=== PATIENT | female | born 1975 | race Caucasian/White ===

== ENCOUNTER 2020-10-07 14:40 | Outpatient (REF) | payer OTHER, SELFPAY | END 2020-10-07 14:41 | disposition home or self-care (01) | LOC: HO.LAB 14:40 | PROVIDERS: Visit Provider Nurse Practitioner Family | DX: Z20.822 Contact with and (suspected) exposure to COVID-19 (principal) | CPT/HCPCS: U0003; U0005 ==

== ENCOUNTER 2020-10-08 10:10 | Outpatient (REF) | payer OTHER, SELFPAY ==
--- NOTE | ~2020-10-08 | XR_ITS ---
EXAMINATION: XR CHEST CLINICAL INFORMATION: Cough COMPARISON: None TECHNIQUE: 2 views of the chest were obtained. FINDINGS: Lungs are clear. There is no airspace consolidation or groundglass opacity or effusion. The costophrenic sulci are well-defined. The heart is normal in size. The hilar and mediastinal contours and bony structures are unremarkable. XR/XR chest 2V IMPRESSION: Lungs clear.
== END 2020-10-08 10:11 | disposition home or self-care (01) ==
LOC: HO.HMGCX 10:10
PROVIDERS: Visit Provider Nurse Practitioner Family
DX: Z13.89 Encounter for screening for other disorder (principal)
CPT/HCPCS: 71046

== ENCOUNTER → 2024-07-19 10:26 | Outpatient (BNVA) | payer OTHER, SELFPAY | PROVIDERS: PCP Internal Medicine; Visit Provider Physician Assistant Surgical ==

== ENCOUNTER 2024-07-31 08:11 | Outpatient (AMB) | payer OTHER, SELFPAY ==
--- OUTSIDE RECORDS SUMMARY | 2024-07-31 08:15 | XMS_ITS | Clinical Summary ---
Author Organization [facility] Address [address] [place] [address] Phone Care Team Providers Care Environmental Planner Name Role Phone Mary Galvan MD Primary Care Provider [phone] Allergies No known active allergies Medications buPROPion SR (WELLBUTRIN SR) 150 mg 12 hr tablet Take 1 tablet (150 mg total) by mouth 2 (two) times a day. 02/02/20 23 Active budesonide-form oteroL (SYMBICORT) 160-4.5 mcg/actuation inhaler Inhale 2 puffs by mouth 2 (two) times a day. 03/22/19 24 Active pantoprazole (PROTONIX) 40 mg EC tablet Take 1 tablet (40 mg total) by mouth 1 (one) time each day before breakfast. On empty stomach 02/02/20 23 Active amphetamine-dex troamphetamine (ADDERALL) 10 mg tablet Take 1 Tablet by mouth 2 Times Daily. 11/04/19 24 Active sertraline (ZOLOFT) 100 mg tablet Take 1 tablet (100 mg total) by mouth at bedtime. 04/18/19 25 Active Adderall XR 20 mg 24 hr capsule Take 1 capsule (20 mg total) by mouth 1 (one) time each day in the morning. 05/29/19 25 Active albuterol HFA (Ventolin HFA) 90 mcg/actuation inhalerIndicati ons:Moderate persistent asthma, unspecified whether complicated Inhale 2 puffs by mouth every 6 (six) hours if needed for wheezing. 1 each 2 07/26/19 25 025 Active Ventolin HFA 90 mcg/actuation inhaler INHALE 2 PUFFS INTO LUNGS EVERY 6 HOURS NEEDED FOR COUGH, WHEEZE, SHORTNESS OF BREATH 04/21/19 25 025 Discontinued Active Problems Problem Noted Date Diagnosed Date Iron deficiency anemia 06/30/2024 Hyperlipidemia 06/30/2024 Depression with anxiety 05/09/2023 Overview (05/06/2024): HSV-2 seropositive 05/09/2023 Overview (05/06/2024): historical info, never had lesions History of bucket handle tear of medial meniscus 05/09/2023 Stage 2 moderate COPD by GOL D classification ([facility] V24, [facility] V28) 02/01/2023 Overview (05/06/2024): Spondylolisthesis, lumbar region 05/23/2020 Lumbar disc herniation 05/23/2020 Thrombocytosis 07/06/2019 Overview (05/06/2024): ADHD 04/03/2019 Left breast lump 07/20/2018 Severe obesity (BMI 35.0-39. 9) with comorbidity ([facility] V24, [facility] V28) 06/23/2018 Spinal stenosis 01/26/2017 Esophageal reflux Resolved Problems Problem Noted Date Diagnosed Date Resolved Date Chronic cough 02/01/2023 06/19/2024 Overview (05/06/2024): Encounters Date Type Department Care Team Description 07/10/2024 1:45 PM EDT Office Visit Obstetrics and Gynecology - [address] [phone] Michaelle Diaz CNM Hot flashes (Primary Dx); Anxiety and depression; Smokes tobacco daily 06/30/2024 Telephone Adult Medicine [facility] - [address] [phone] Kendal Perea PA VIDEO VISIT 06/27/2024 8:50 AM EDT - 06/27/2024 11:59 PM EDT Hospital Encounter Radiology Department - [address] [phone] Screening mammogram, encounter for Discharge Disposition: Home or Self Care 06/22/2024 10:25 AM EDT - 06/22/2024 11:59 PM EDT Hospital Encounter [address] [phone] Unilateral primary osteoarthritis, right knee Discharge Disposition: Home or Self Care 06/19/2024 10:15 AM EDT Office Visit [address] [phone] Kendal Perea PA Spinal stenosis, unspecified spinal region (Primary Dx); Need for vaccination against Streptococcus pneumoniae; Low hemoglobin and low hematocrit; Lipid screening; Stage 2 moderate COPD by GOLD classification (CMS/HCC V24, CMS/HCC V28); Elevated random blood glucose level; Colon cancer screening; Severe obesity (BMI 35.0-39.9) with comorbidity (CMS/HCC V24, [facility] V28); Chronic joint pain 06/14/2024 Telephone Adult Medicine [address] [phone] Mary Galvan MD Labs Only from Last 3 Months Immunizations Name Administration Dates Next Due Influenza Quadravalent, MDCK , 0.5ml, preservative free (Flucelvax) 6mo and older 01/03/2019 Influenza, Unspecified 12/05/2017,12/08/2016 Moderna SARS-CoV-2 COVID-19, mRNA, LNP-S, preservative free 06/30/2020,05/31/2020 Pneumococcal conjugate 20 va lent (Prevnar 20, PCV 20) 2mo and older 06/19/2024 Tdap Tetanus diptheria acell ular pertussis (Boostrix; Adacel) 7yo and older 12/16/2014 Surgical History Surgery Date Site/Laterality Comments SECTION 1994 TUBAL LIGATION 2009 BACK SURGERY 02/08/2018 L4-L5 repair UPPER GASTROINTESTINAL ENDOSCOPY 01/16/2020 neil esophagitis Medical History Medical History Date Comments Depression with anxiety HSV-2 seropositive historical in fo, never had lesions History of bucket handle tea r of medial meniscus 11/27/201405/16, left Spinal stenosis 01/26/2017 Esophageal reflux Family History Medical History Relation Name Comments Bipolar disorder Daughter Other: unknown Father COPD Maternal Grandmother Other: murdered Mother Relation Name Status Comments Daughter Father Alive Maternal Grandfather Maternal Grandmother Mother Paternal Grandfather Paternal Grandmother Social History Tobacco Use Types Packs/Day Years Used Date Smoking Tobacco: Every Day Smokeless Tobacco: Never Tobacco Cessation:Ready to Q uit: Not Asked; Counseling Given: Not Answered Alcohol Use Standard Drinks/Week Comments No 0 (1 standard drink = 0.6 oz pur e alcohol) Housing Instability Answer Date Recorde d Are you worried that in the next 2 months you may not have stable housing? No 06/28/2024 Food Access & Nutrition Answer Date Rec orded Do you have access to a vari ety of food including fruits and vegetables? No 06/28/2024 Access to Healthcare Answer Date Record ed Within the last 3 months, ho w many times did you visit the emergency department for your medical care? 0 06/28/2024 Health Literacy Answer Date Recorded How often do you need to hav e someone help you when you read instructions, pamphlets, or other written material from your doctor or pharmacy? Never 06/28/2024 Caregiver: How often do you need to have someone help you when you read instructions, pamphlets, or other written material from your doctor or pharmacy? Not on file 06/28/2024 Financial Risk Answer Date Recorded How hard is it for you to pa y for the very basics like food, housing, medical care, and air conditioning / heating? Hard 06/28/2024 Transportation Answer Date Recorded Has the lack of transportati on kept you from meetings, work, or from getting things needed for daily living? No Has the lack of transportati on kept you from medical appointments or from getting medications? No 06/28/2024 Social Isolation Answer Date Recorded How often do you feel lonely or isolated from th ose around you? Never 06/28/2024 Food Risk Answer Date Recorded Within the past 12 months we worried whether our food would run out before we got money to buy more. Unable to respond 025 Within the past 12 months th e food we bought just didn't last and we didn't have money to get more. Unable to respond 06/06 Dependent Care Answer Date Recorded Do you need help finding or paying for care for your loved ones. For example, child development director or elderly care for an older adult? No 06/28/2024 Education Answer Date Recorded Do you think completing more education or training, like finishing a GED, going to college, or learning a trade, would be helpful for you? No 06/28/2024 Employment and Income Answer Date Recor ded During the last four weeks, have you been actively looking for work? No 06/28/2024 Living Situation Answer Date Recorded What is your living situation? 0 06/28/2024 Comments No Sex and Gender Information Value Date Recorded Sex Assigned at Not on file Legal Sex Female 4:20 AM EST Gender Identity Not on file Sexual Orientation Not on file Obstetrics History Para Term AB IAB SAB Ectopic Multiple Livin g Live Births 4 4 4 4 4 Date Outcome GA Total Labor Labor/2nd/3rd Weight Sex Type Anes PTL Nessa A1 A5 Name Clin Term CS-Un spec Living Term Living Term Living Term Living Last Filed Vital Signs Vital Sign Reading Time Taken Comments Blood Pressure 132/84 07/10/2024 1:46 PM EDT Pulse 72 07/10/2024 1:46 PM EDT Temperature 35.9 ??C (96.7 ??F) 06/19/2024 1 0:29 AM EDT Respiratory Rate 14 06/19/2024 10:2 9 AM EDT Oxygen Saturation 98% 12/23/2022 10: 28 AM EDT @ rest on R.A. Inhaled Oxygen Concentration - - Weight 82.6 kg (182 lb) 07/10/2024 1:46 PM EDT Height 149.9 cm (4' 11 ) 11/11/2023 9:1 2 AM EDT Body Mass Index 36.76 11/11/2023 9:12 AM EDT Plan of Treatment Upcoming Encounters Date Type Department Care Team ([facility] st Contact Info) Description 08/07/2024 11:00 AM EDT Office Visit Pulmonolgy - [address] [place] [address] [phone] Monie Tobias MD 175 [facility] [address] [place] [address] 08/23/2024 3:00 PM EDT Office Visit Adult Medicine [facility] [address] [place] [phone] Mary Galvan MD [address] [place] [address] 09/11/2024 12:30 PM EDT Appointment [facility] Endoscopy [address] [place] [phone] Piotr Dockery MD 175 [facility] [address] [place] [address] 04/04/2025 9:30 AM EST Consult Bariatric Surgery - [place] 175 [facility] [address] [place] [phone] Jacque Ramirez PA 175 [facility] [address] [place] [address] Health Maintenance Due Date Last Done Comments Hepatitis B Vaccines (1 of 3 - 19+ 3-dose series) 1996 Cervical Cancer Screening: Pap Smear 05/19/2021 05/19/2018, 05/19/2018, 05/19/2018, Additional history exists Colorectal Cancer Screening: Colonoscopy 02/07/2022 COVID-19 Vaccine ( season) 2023 06/30/2020, 05/31/2020 Influenza Vaccine (Season Ended) 2024 01/03/2019, 12/05/2017, 12/08/2016 DTaP,Tdap,and Td Vaccines (2 - Td or Tdap) 12/16/2024 12/16/2014 Social Influencers of Health Screening 06/28/2025 06/28/2024, 05/19/2018 Depression Screening 07/07/2025 07/07/2024, 04/03/19 Breast Cancer Screening 06/27/2026 06/28/19 25, 01/19/2019, 07/19/2018, Additional history exists Cholesterol Screening (Lipid Panel) 06/19/2029 06/19/2024, 11/11/2023, 11/11/2023, Additional history exists HIV Screening Completed 03/08/2023 Hepatitis C Screening Completed 03/08/2023 Pneumococcal Vaccine: Pediatrics (0 to 5 Years) and At-Risk Patients (6 to 64 Years) Completed 06/19/2024 HIB Vaccines Aged Out No longer eligi ble based on patient's age to complete this topic HPV Vaccines Aged Out No longer eligi ble based on patient's age to complete this topic Hepatitis A Vaccines Aged Out No long er eligible based on patient's age to complete this topic IPV Vaccines Aged Out No longer eligi ble based on patient's age to complete this topic MMR Vaccines Aged Out No longer eligi ble based on patient's age to complete this topic Meningococcal ACWY Vaccine Aged Out N o longer eligible based on patient's age to complete this topic Meningococcal B Vaccine Aged Out No l onger eligible based on patient's age to complete this topic RSV Immunization Patients Under 20 months Aged Out No longer eligible based on patient's age to complete this topic Varicella Vaccines Aged Out No longer eligible based on patient's age to complete this topic Procedures Procedure Name Priority Date/Time Associated Diagnosis Comments MG MAMMO DIGITAL SCREENING W LEO BILAT Routine 06/27/2024 9:01 AM EDT Screening mammogram, encounter for XR KNEE 4+ VIEWS RIGHT Routine 06/22/2024 10:33 AM EDT Unilateral primary osteoarthritis, right knee CBC WITH AUTO DIFFERENTIAL Routine 06/19/2024 11:24 AM EDT Low hemoglobin and low hematocrit CHRISTIANO IFA WITH TITER AND PATTERN Routine 06/19/2024 11:24 AM EDT Chronic joint pain BORRELIA BURGDORFERI ANTIBODY Routine 06/19/2024 11:24 AM EDT Chronic joint pain URIC ACID Routine 06/19/2024 11:24 AM EDT Chronic joint pain RHEUMATOID FACTOR Routine 06/19/2024 11: 24 AM EDT Chronic joint pain HEMOGLOBIN A1C Routine 06/19/2024 11:24 AM EDT Elevated random blood glucose level FERRITIN Routine 06/19/2024 11:24 AM EDT Low hemoglobin and low hematocrit IRON AND TIBC Routine 06/19/2024 11:24 AM EDT Low hemoglobin and low hematocrit CBC AND DIFFERENTIAL Routine 06/19/2024 11:24 AM EDT Low hemoglobin and low hematocrit COMPREHENSIVE METABOLIC PANEL Routine 06/19/2024 11:24 AM EDT Need for vaccination against Streptococcus pneumoniae Low hemoglobin and low hematocrit Lipid screening Depression with anxiety Stage 2 moderate COPD by GOLD classification (CMS/HCC V24, CMS/HCC V28) Elevated random blood glucose level LIPID PANEL WITH REFLEX TO DIRECT LDL Routine 06/19/2024 11:24 AM EDT Lipid screening SEDIMENTATION RATE Routine 06/19/2024 11 :24 AM EDT Chronic joint pain HM HEPATITIS C SCREENING Routine 03/08/2023 HIV SCREENING Routine 03/08/2023 PAP SMEAR Routine 05/19/2018 from Last 3 Months or Most Recently Relevant to Health Maintenance Results * MG Mammo Digital Screening w Leo bilat (06/27/2024 9:01 AM EDT) Anatomical Region Laterality Modality Breast Bilateral Mammography 06/27/2024 11:3 0 AM EDT Impressions 06/27/2024 11:59 AM EDT No mammographic evidence for malignancy. BI-RADS CATEGORY: 1 - NEGATIVE RECOMMENDATION: Screening bilateral mammogram is recommended in 1 year. Mammo Location: [facility], [address] [place] [address], [id number], . -------- FINAL REPORT -------- Dictated By: Emily Quiles Dictated Date: 06/27/2024 11:30 ET Assigned Physician: Emily Quilse Reviewed and Electronically Signed By: Emily Quiles Signed Date: 06/27/2024 11:59 ET Workstation ID: [id number] Transcribed By: Self Edit Transcribed Date: 06/27/2024 11:30 ET Narrative 06/27/2024 11:59 AM EDT Bilateral screening mammogram. CLINICAL: 48 years old, Female, routine annual exam. COMPARISON: Prior mammogram from 01/19/2019. ?? TECHNIQUE: Bilateral MLO and CC views were obtained digitally with 2-D C views and 3-D mammogram (digital breast tomosynthesis). Computer-aided detection was utilized in evaluation of this exam (CAD). FINDINGS: There is no evidence of suspicious mass or architectural distortion. ??No worrisome calcifications are evident. ??There has been no significant change from prior exam(s). ?? BREAST DENSITY: B - There are scattered areas of fibroglandular density. Procedure Note Emily Quiles MD - 06/27/2024 Bilateral screening mammogram. CLINICAL: 48 years old, Female, routine annual exam. COMPARISON: Prior mammogram from 01/19/2019. TECHNIQUE: Bilateral MLO and CC views were obtained digitally with 2-D Cviews and 3-D mammogram (digital breast tomosynthesis). Computer-aideddetection was utilized in evaluation of this exam (CAD). FINDINGS: There is no evidence of suspicious mass or architectural distortion. Noworrisome calcifications are evident. There has been no significantchange from prior exam(s). BREAST DENSITY: B - There are scattered areas of fibroglandular density. IMPRESSION: No mammographic evidence for malignancy. BI-RADS CATEGORY: 1 - NEGATIVE RECOMMENDATION: Screening bilateral mammogram is recommended in 1 year. Mammo Location: [facility], [address] [place] [address], [phone], . -------- FINAL REPORT -------- Dictated By: Emily Quiles Dictated Date: 06/27/2024 11:30 ET Assigned Physician: Emily Quiles Reviewed and Electronically Signed By: Emily Quiles Signed Date: 06/27/2024 11:59 ET Workstation ID: [id number] Transcribed By: Self Edit Transcribed Date: 06/27/2024 11:30 ET Kendal BUCIO IMG BI PROCEDURES Final Resul t * XR Knee 4+ Views Right (06/22/2024 10:33 AM EDT) Anatomical Region Laterality Modality Lower Extremities, Knee [facility] 06/22/2024 2:55 PM EDT Impressions 06/22/2024 2:56 PM EDT Normal right knee. -------- FINAL REPORT -------- Dictated By: Dee Prather Dictated Date: 06/22/2024 14:55 ET Assigned Physician: Dee Prather Reviewed and Electronically Signed By: Dee Prather Signed Date: 06/22/2024 14:56 ET Workstation ID: [id number] Transcribed By: Self Edit Transcribed Date: 06/22/2024 14:55 ET Narrative 06/22/2024 2:56 PM EDT RIGHT KNEE VIEWS: 4. HISTORY: Unilateral primary osteoarthritis. FINDINGS: No fracture or malalignment is seen. Soft tissues are normal. The patellae are normally positioned on the Merchant view. No joint effusion is seen. Procedure Note Dee Prather MD - 06/22/2024 RIGHT KNEE VIEWS: 4. HISTORY: Unilateral primary osteoarthritis. FINDINGS: No fracture or malalignment is seen. Soft tissues are normal. The patellaeare normally positioned on the Merchant view. No joint effusion is seen. IMPRESSION: Normal right knee. -------- FINAL REPORT -------- Dictated By: Dee Prather Dictated Date: 06/22/2024 14:55 ET Assigned Physician: Dee Prather Reviewed and Electronically Signed By: Dee Prather Signed Date: 06/22/2024 14:56 ET Workstation ID: [id number] Transcribed By: Self Edit Transcribed Date: 06/22/2024 14:55 ET us Napoleon BUCIO IMG XR PROCEDURES Final Result * (ABNORMAL) Lipid panel with reflex to direct LDL (06/19/2024 11:24 AM EDT) Cholesterol 239(H) 0 - 200 mg/dL LAB CHEMISTRY METHOD 06/19/2024 5:07 PM EDT [facility] Triglycerides 161(H) 0 - 150 mg/dL LAB CHEMISTRY METHOD 06/19/2024 5:07 PM EDT [facility] HDL 64 >=40 mg/dL LAB CHEMISTRY METHOD 06/19/2024 5:07 PM EDT [facility] LDL Calculated 143(H) 0 - 100 mg/dL LAB CHEMISTRY METHOD 06/19/2024 5:07 PM EDT [facility] VLDL Cholesterol Anurag 32.2 mg/dL LAB CHEMISTRY METHOD 06/19/2024 5:07 PM EDT [facility] Non HDL Chol. (LDL+VLDL) 175(H) <145 mg/dL LAB CHEMISTRY METHOD 06/19/2024 5:07 PM EDT [facility] Chol/HDL Ratio 3.7 0.0 - 4.4 LAB CHEMISTRY METHOD 06/19/2024 5:07 PM EDT [facility] Blood Venous blood specimen / Unknown Venipuncture / Unknown 06/19/2024 11:24 AM EDT 06/19/2024 11:24 AM EDT us Kendal BUCIO LAB BLOOD ORDERABLES Final Re sult [facility] [address] [place] [address], * CHRISTIANO IFA with titer and pattern (06/19/2024 11:24 AM EDT) CHRISTIANO Negative Negative 06/21/2024 11:30 AM EDT [facility] Blood Venous blood specimen / Unknown Venipuncture / Unknown 06/19/2024 11:24 AM EDT 06/19/2024 11:24 AM EDT us Kendal BUCIO LAB BLOOD ORDERABLES Final Re sult [facility] [address] [place] [address], * (ABNORMAL) CBC auto differential (06/19/2024 11:24 AM EDT) WBC 7.9 4.8 - 10.8 K/mcL LAB HEMETOLOGY METHOD 06/19/2024 3:42 [facility] RBC 4.60 3.80 - 4.80 M/mcL LAB HEMETOLOGY METHOD 06/19/2024 3:42 PM [facility] Hemoglobin 10.0(L) 11.5 - 16.0 g/dL LAB HEMETOLOGY METHOD 06/19/2024 3:42 PM [facility] Hematocrit 35.3 35.0 - 47.0 % LAB HEMETOLOGY METHOD 06/19/2024 3:42 PM [facility] MCV 77.2(L) 79.0 - 98.0 FL LAB HEMETOLOGY METHOD 06/19/2024 3:42 PM T [facility] MCH 21.9(L) 27.0 - 32.0 pcg LAB HEMETOLOGY METHOD 06/19/2024 3:42 PM [facility] MCHC 28.3(L) 32.0 - 37.0 g/dL LAB HEMETOLOGY METHOD 06/19/2024 3:42 PM [facility] RDW 19.4(H) 11.0 - 15.0 % LAB HEMETOLOGY METHOD 06/19/2024 3:42 PM EDT [facility] Platelets 440(H) 130 - 400 K/mcL LAB HEMETOLOGY METHOD 06/19/2024 3:42 PM [facility] MPV 8.8 7.0 - 11.0 FL LAB HEMETOLOGY METHOD 06/19/2024 3:42 PM [facility] NRBC 0.0 <1.0 % LAB HEMETOLOGY METHOD 06/19/2024 3:42 PM [facility] NRBC Absolute 0.00 <0.10 K/mcL LAB HEMETOLOGY METHOD 06/19/2024 3:42 PM [facility] Neutrophils Relative 67.1 % LAB HEMETOLOGY METHOD 06/19/2024 3:42 PM [facility] Lymphocytes Relative 14.9 % LAB HEMETOLOGY METHOD 06/19/2024 3:42 PM [facility] Monocytes Relative 12.1 % LAB HEMETOLOGY METHOD 06/19/2024 3:42 PM [facility] Eosinophils Relative 4.0 % LAB HEMETOLOGY METHOD 06/19/2024 3:42 PM [facility] Basophils Relative 1.4 % LAB HEMETOLOGY METHOD 06/19/2024 3:42 PM [facility] Immature Granulocytes Relative 0.5 % LAB HEMETOLOGY METHOD 06/19/2024 3:42 PM [facility] Neutrophils Absolute 5.33 1.50 - 7.00 K/mcL LAB HEMETOLOGY METHOD 06/19/2024 3:42 PM [facility] Lymphocytes Absolute 1.18 1.00 - 5.00 K/mcL LAB HEMETOLOGY METHOD 06/19/2024 3:42 PM [facility] Monocytes Absolute 0.96 0.20 - 1.00 K/mcL LAB HEMETOLOGY METHOD 06/19/2024 3:42 PM [facility] Eosinophils Absolute 0.32 0.00 - 0.50 K/[facility] LAB HEMETOLOGY METHOD 06/19/2024 3:42 PM EDT [facility] Basophils Absolute 0.11 0.00 - 0.20 K/[facility] LAB HEMETOLOGY METHOD 06/19/2024 3:42 PM EDT [facility] Immature Granulocytes Absolute 0.04(H) 0.00 - 0.03 K/[facility] LAB HEMETOLOGY METHOD 06/19/2024 3:42 PM EDT [facility] Blood Venous blood specimen / Unknown Venipuncture / Unknown 06/19/2024 11:24 AM EDT 06/19/2024 11:24 AM EDT us Kendal BUCIO LAB BLOOD ORDERABLES Final Re sult Performing Organization Address City/[facility]/ZIP Co de Phone Number [facility] [address] [place] [address], * (ABNORMAL) Iron and TIBC (06/19/2024 11:24 AM EDT) Iron 12(L) 40 - 150 mcg/dL LAB CHEMISTRY METHOD 06/19/2024 5:07 PM EDT [facility] TIBC 458(H) 250 - 450 mcg/dL LAB CHEMISTRY METHOD 06/19/2024 5:07 PM EDT [facility] Iron Saturation 3(L) 15 - 50 % LAB CHEMISTRY METHOD 06/19/2024 5:07 PM EDT [facility] Blood Venous blood specimen / Unknown Venipuncture / Unknown 06/19/2024 11:24 AM EDT 06/19/2024 11:24 AM EDT us Kendal BUCIO LAB BLOOD ORDERABLES Final Re sult [facility] [address] [place] [address], [place] [phone] * Borrelia burgdorferi antibody (06/19/2024 11:24 AM EDT) [facility] [address] [facility] Lyme Ab Negative Negative LAB CHEMISTRY METHOD 06/20/2024 11:31 AM EDT [facility] Comment: No laboratory evidence of infection with B. burgdorferi (Lyme disease). Negative results may occur in patients recently infected (<=14 days) with B. burgdorferi. ??If recent infection is suspected, repeat testing on a new sample collected in 7-14 days is recommended. Blood Venous blood specimen / Unknown Venipuncture / Unknown 06/19/2024 11:24 AM EDT 06/19/2024 11:24 AM EDT us Kendal BUCIO LAB BLOOD ORDERABLES Final Re sult Performing Organization Address City/[facility]/ZIP Co de Phone Number [facility] [address] [place] [address], * Sedimentation rate (06/19/2024 11:24 AM EDT) [facility] [address] Sed Rate 9 0 - 20 mm/hr LAB HEMETOLOGY METHOD 06/19/2024 3:41 PM EDT [facility] Blood Venous blood specimen / Unknown Venipuncture / Unknown 06/19/2024 11:24 AM EDT 06/19/2024 11:24 AM EDT us Kendal BUCIO LAB BLOOD ORDERABLES Final Re sult [facility] [address] [place] [address], * Rheumatoid factor (06/19/2024 11:24 AM EDT) [facility] [address] Rheumatoid Factor <10.0 <15.0 I Unit/mL LAB CHEMISTRY METHOD 06/19/2024 5:07 PM EDT [facility] Blood Venous blood specimen / Unknown Venipuncture / Unknown 06/19/2024 11:24 AM EDT 06/19/2024 11:24 AM EDT us Kendal BUCIO LAB BLOOD ORDERABLES Final Re sult Performing Organization Address City/[facility]/ZIP Co de Phone Number [facility] [address] [place] [address], [place] [phone] * (ABNORMAL) Uric acid (06/19/2024 11:24 AM EDT) Uric Acid 2.6(L) 3.1 - 7.8 mg/dL LAB CHEMISTRY METHOD 06/19/2024 5:07 PM EDT [facility] Blood Venous blood specimen / Unknown Venipuncture / Unknown 06/19/2024 11:24 AM EDT 06/19/2024 11:24 AM EDT us Kendal BUCIO LAB BLOOD ORDERABLES Final Re sult Performing Organization Address [facility]/ZIP Co de Phone Number [facility] [address] [place] [address], [place] [phone] * Hemoglobin A1c (06/19/2024 11:24 AM EDT) Hemoglobin A1C 5.0 <6.5 % LAB CHEMISTRY METHOD 06/19/2024 9:54 PM EDT [facility] Mean Bld Glu Estim. 97 mg/dL LAB CHEMISTRY METHOD 06/19/2024 9:54 PM EDT [facility] Blood Venous blood specimen / Unknown Venipuncture / Unknown 06/19/2024 11:24 AM EDT 06/19/2024 11:24 AM EDT us Kendal BUCIO LAB BLOOD ORDERABLES Final Re sult [facility] [address] [place] [address], [place] [phone] * Ferritin (06/19/2024 11:24 AM EDT) Pathologist [facility] [place] Ferritin 14 8 - 252 ng/mL LAB CHEMISTRY METHOD 06/19/2024 5:04 PM [facility] Blood Venous blood specimen / Unknown Venipuncture / Unknown 06/19/2024 11:24 AM EDT 06/19/2024 11:24 AM EDT us Kendal BUCIO LAB BLOOD ORDERABLES Final Re sult [facility] [address] [place] [address], [place] [phone] * Comprehensive metabolic panel (06/19/2024 11:24 AM EDT) [facility] [address] Sodium 138 133 - 145 mmol/L LAB CHEMISTRY METHOD 06/19/2024 5:07 PM [facility] Potassium 5.0 3.5 - 5.5 mmol/L LAB CHEMISTRY METHOD 06/19/2024 5:07 PM [facility] Chloride 109 96 - 110 mmol/L LAB CHEMISTRY METHOD 06/19/2024 5:07 PM [facility] CO2 25 21 - 32 mmol/L LAB CHEMISTRY METHOD 06/19/2024 5:07 PM [facility] Anion Gap 4 3 - 11 LAB CHEMISTRY METHOD 06/19/2024 5:07 PM [facility] Glucose 96 70 - 100 mg/dL LAB CHEMISTRY METHOD 06/19/2024 5:07 PM [facility] BUN 19 5 - 25 mg/dL LAB CHEMISTRY METHOD 06/19/2024 5:07 PM [facility] Creatinine 0.79 0.50 - 1.10 mg/dL LAB CHEMISTRY METHOD 06/19/2024 5:07 PM [facility] eGFR 94 >=60 mL/min/1. 73m2 LAB CHEMISTRY METHOD 06/19/2024 5:07 PM [facility] Comment:Calculation based on the??Chronic Kidney Disease Epidemiology Collaboration (CKD-EPI) equation refit??without adjustment for race. BUN/Creatinine Ratio 24.1 LAB CHEMISTRY METHOD 06/19/2024 5:07 PM [facility] Calcium 9.6 8.5 - 10.5 mg/dL LAB CHEMISTRY METHOD 06/19/2024 5:07 PM [facility] AST (SGOT) 15 10 - 42 unit/L LAB CHEMISTRY METHOD 06/19/2024 5:07 PM [facility] ALT (SGPT) 19 10 - 60 unit/L LAB CHEMISTRY METHOD 06/19/2024 5:07 PM [facility] Alkaline Phosphatase 68 42 - 121 unit/L LAB CHEMISTRY METHOD 06/19/2024 5:07 PM [facility] Total Protein 7.2 6.0 - 8.0 g/dL LAB CHEMISTRY METHOD 06/19/2024 5:07 PM [facility] Albumin 3.7 3.2 - 5.0 g/dL LAB CHEMISTRY METHOD 06/19/2024 5:07 PM [facility] Total Bilirubin 0.2 0.0 - 1.4 mg/dL LAB CHEMISTRY METHOD 06/19/2024 5:07 PM [facility] Blood Venous blood specimen / Unknown Venipuncture / Unknown 06/19/2024 11:24 AM EDT 06/19/2024 11:24 AM EDT us Kendal BUCIO LAB BLOOD ORDERABLES Final Re sult [facility] [address] [place] [address], * HIV Screening (03/08/2023) HIV Screening Abstracted Historical Provider HEALTH MAINTENANCE Final Result * Hepatitis C Screening (03/08/2023) Hepatitis C Screening Abstracted Historical Provider HEALTH MAINTENANCE Final Result * Pap smear (05/19/2018) 05/19/2018 Narrative HISTORICAL TESTING LAB RESULTING AGENCY - 05/24/2018 10:39 AM EDT [id number] THINPREP PAP, IMAGED: NEGATIVE FOR SQUAMOUS INTRAEPITHELIAL LESION AND MALIGNANCY . JEFF PRASAD(ASCP) (CASE ELECTRONICALLY SIGNED 05 24 2018) RESULT OF APTIMA HIGH RISK HPV ASSAY: HIGH RISK HPV: ??NEGATIVE (SEROTYPES 16,18,31,33,35,39,45,51,52,56,58,59,66,68) COMPLETED ON 2018-05-23 ADEQUACY: SATISFACTORY ENDOCERVICAL/TRANSFORMATION ZONE COMPONENT PRESENT. SOURCE: THINPREP PAP HPV ANY DX: ??REFLEX 16 AND 18, CERVICAL, IMAGED CLINICAL INFORMATION: HPV ANY DIAGNOSIS. Z12.4, Z01.419 Chaya WHITT LAB CYTOLOGY ORDERABLES Final R esult HISTORICAL TESTING LAB RESULTING AGENCY from Last 3 Months or Most Recently Relevant to Health Maintenance Insurance Care Teams Environmental Planner Relationship Specialty Start Date End Date Mary Galvan MD [address] [place] [address] PCP - General Internal Medicine 09/18/14
--- NOTE | 2024-07-31 08:24 | A.OFFVIS_ITS ---
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 BMI 36.8: Details: Start time: 8.17am, End time: 9.02am ?I spent 40 minutes speaking with the patient on the phone plus an additional 5 minutes reviewing and updating records for a total of 45 minutes HPI Comments Details: Previous weight loss efforts: self diet, exercise, Phentermine Wakes up: 7am, Sleeps: 12am Breakfast: occasionally (eggs or oatmeal) Lunch: none Dinner: none Snacks: several snacks (toast, pasta, cheese sandwich, chips multiple times per day Exercise: none Beverages: Coffee (12-15 cups/d with milk), tea/soda: none, juice (2 glasses per day, daily), ETOH: none PFSH Medical History (Updated 07/31/24 @ 08:45 by Ruben Foster MD) Asthma GERD (gastroesophageal reflux disease) ADHD Obesity Delivery with history of Surgical History (Updated 07/19/24 @ 10:56 by Comfort Gloria CMA) History of back surgery Family History (Updated 07/19/24 @ 10:58 by Comfort Gloria CMA) Mother No problems noted. Father No problems noted. Daughter Bipolar 1 disorder Obesity Daughter Obesity Son No problems noted. Son No problems noted. Social History (Updated 07/19/24 @ 10:59 by Comfort Gloria CMA) Alcohol intake: never Patient Tobacco Use Status: Current someday Tobacco user Cigarettes Per Day: 20 Telehealth Telehealth Telehealth Platform: Telephone Location of provider rendering services: practice address Location of patient: address on file Patient Identification confirmed using: Name, : Yes Telehealth method: voice only Patient verbally consented to treatment: Yes Patient verbally consented to billing insurance company: Yes Patient informed of any privacy concerns related to visit: Yes Minutes spent on Phone/Video with Pt.: 45 Assessment & Plan Assessment & Plan (1) Obesity: Code(s): E66.9 - Obesity, unspecified Category: Medical Qualifiers: Obesity type: due to excess calories Obesity classification: adult class 2 (BMI 35 - 39.9) Serious obesity comorbidity presence: without serious comorbidity Body mass index: BMI 36.0-36.9 Qualified Code(s): E66.812 - Obesity, class 2; E66.09 - Other obesity due to excess calories; Z68.36 - Body mass index [BMI] 36.0-36.9, adult Plan: 1.? Plan for lap sleeve gastrectomy. If diaphragmatic or ventral hernias are present at time of surgery, these will be repaired laparoscopically as well. I emphasized the importance of close follow-up, adherence to instructions and good communication. The surgery does not replace the need to change your lifestlyle which is the cause of the obesity problem. The surgery provides the motivation to try again to change your lifestyle, it reduces the appetite and make the transition to a better lifestyle easier and doubles the amount of weight you would lose compared to doing the lifestyle change without the surgery. You will need to be on a liquid diet with protein shakes for 2 weeks before surgery to maximize weight loss and boost your nutritional status to recover better from surgery and also for the first two weeks after surgery to let the stomach heal before we introduce other foods. After the first 2 weeks we will introduce protein bars and soft foods like scrambled eggs, cottage cheese and yogurt and after the 6th week will introduce meat, fish and cooked vegetables in small amounts. Over time you should be able to eat everything in small amounts. Side effects like nausea, vomiting, heartburn or abdominal pain are not common in the practice unless you are not following in the practice. This operation requires lifetime commitment to following in our practice and communication with me. You will much less weight and experience side effects if you don?t communicate or not following in the practice. Complications are rare and in our practice is about 1/10 of the national average. However, you can develop bleeding that may require transfusion (hasn?t happened for year in the practice), you may from complications (we did not have any deaths in the practice) and infections. Infections are usually a result of breakdown in commun ication or not understanding or following directions correctly. They are difficult to treat, they can happen during the first 6 weeks, they may require to be in the hospital for weeks or even months, not being able to eat by mouth and you may have drains and surgeries to try and correct the issue. Other risks and complications include possible conversion to an open procedure, leaks, small bowel obstruction, blood clots, cardiac, or pulmonary complications, as detention complications such as ulcers, insufficient weight loss and vitamin deficiencies. 2.? Nutritional counseling. Start with one PREMIER protein (buy at [employer] or [employer]) shake (mix 4oz of Premier shake with 4oz low fat unsweetened almond milk each) at 8am-10am, 1 protein bar (FIT CRUNCH protein bars, buy at [employer],?[employer] or [employer]) at 11am-1pm, another PREMIER protein shake (mix 4oz of Premier shake with 4oz low fat unsweetened almond milk each) at 2pm-4pm, dinner at 5pm (7 forks of protein and 7 forks of salad/vegetables), and TWO MORE FIT CRUNCH protein bars after dinner at 7pm-9pm and 10pm to midnight. So you do 2 protein shakes, 3 protein bars and one meal per day. Meal to include lean meat (beef, fish, pork, turkey, chicken), or yakut yogurt, or egg whites, or beans with a salad with olive oil and fruits (berries, pears, apples, kiwi). Avoid salt, breads, potatoes, rice, pasta, desserts. 3. Each shake would be drunk slowly, like coffee in a period of 2 hours. 4. Cut each bar in 4 pieces and eat each piece in 30min ?to make each bar last 2 hours. 5. I emphasized the importance of measuring accurately the food portion and measure it when serving the food in plate 6. The meal portions include 7 full-size forks of meat and 7 full-size forks of salad. You always eat the meat portion but you can replace up to 4 forks for salad/vegetables with rice, potatoes or pasta, or a fruit ?if you like. The less you do it the better weight loss will be. 7. One full-size fork is what it can be scooped on the fork without falling aside and not what can be bit with the fork. Use regular forks like those you find in a typical restaurant. 8.? Please buy the body composition scale we discussed and send me weight measurements as soon as possible and then once a week. Always include your diet and exercise plan. 9. Start walking outside daily, tracking calories with a goal of 300 calories per day, daily. Goal is to burn 2000 calories per week on exercise, which means either 300 calories daily, or 400 calories 5 days per week, or 500 calories 4 days per week, or 650 calories 3 days per week. 10. The best choice would be to purchase a stationary bike at home that can track calories. Let me know if you do so I can give you an exercise plan. 11.?It is important of avoiding and for at least 18 months postoperatively and has been discussed at the infosession. 12. Goal is to lose at least 1.5-2lbs per week 13. Goal to lose 10% of your weight before surgery, which is about 18lbs. Ultimate weight goal: 158lbs before surgery 14. Please follow the diet plan exactly without any change. If you don't like something about the plan or you feel hungry you need to communicate with me so I can help you revise the plan. You should not change the plan yourself 15. To be scheduled for EGD to assess the stomach's anatomy. The possibility of biopsies was discussed. Patient needs to avoid use of NSAIDs and aspirin for 1 week prior to EGD. You must be on liquids only the day before your endoscopy. Risks of perforation and bleeding was discussed with the patient. This will be an outpatient procedure with IV sedation. Orders: Orders Hemoglobin A1c Today E66.9 - Obesity, unspecified, J45.909 - Unspecified asthma, uncomplicated, K21.9 - Gastro-esophageal reflux disease without esophagitis, Z68.36 - Body mass index [BMI] 36.0-36.9, adult Complete Blood Count Auto Diff Today E66.9 - Obesity, unspecified, J45.909 - Unspecified asthma, uncomplicated, K21.9 - Gastro-esophageal reflux disease without esophagitis, Z68.36 - Body mass index [BMI] 36.0-36.9, adult IRON PROFILE Today E66.9 - Obesity, unspecified, J45.909 - Unspecified asthma, uncomplicated, K21.9 - Gastro-esophageal reflux disease without esophagitis, Z68.36 - Body mass index [BMI] 36.0-36.9, adult Comprehensive Met. Panel Today E66.9 - Obesity, unspecified, J45.909 - Unspeci fied asthma, uncomplicated, K21.9 - Gastro-esophageal reflux disease without esophagitis, Z68.36 - Body mass index [BMI] 36.0-36.9, adult Zinc Today E66.9 - Obesity, unspecified, J45.909 - Unspecified asthma, uncomplicated, K21.9 - Gastro-esophageal reflux disease without esophagitis, Z68.36 - Body mass index [BMI] 36.0-36.9, adult C Reactive Protein Today E66.9 - Obesity, unspecified, J45.909 - Unspecified asthma, uncomplicated, K21.9 - Gastro-esophageal reflux disease without esophagitis, Z68.36 - Body mass index [BMI] 36.0-36.9, adult Vitamin B1 Today E66.9 - Obesity, unspecified, J45.909 - Unspecified asthma, uncomplicated, K21.9 - Gastro-esophageal reflux disease without esophagitis, Z68.36 - Body mass index [BMI] 36.0-36.9, adult US abdomen comp w elastography Today E66.9 - Obesity, unspecified, J45.909 - Unspecified asthma, uncomplicated, K21.9 - Gastro-esophageal reflux disease without esophagitis, Z68.36 - Body mass index [BMI] 36.0-36.9, adult XR chest 2V Today E66.9 - Obesity, unspecified, J45.909 - Unspecified asthma, uncomplicated, K21.9 - Gastro-esophageal reflux disease without esophagitis, Z68.36 - Body mass index [BMI] 36.0-36.9, adult ECG 12 lead EKG Today E66.9 - Obesity, unspecified, J45.909 - Unspecified asthma, uncomplicated, K21.9 - Gastro-esophageal reflux disease without esophagitis, Z68.36 - Body mass index [BMI] 36.0-36.9, adult Insulin Today E66.9 - Obesity, unspecified, J45.909 - Unspecified asthma, uncomplicated, K21.9 - Gastro-esophageal reflux disease without esophagitis, Z68.36 - Body mass index [BMI] 36.0-36.9, adult H Pylori Breath Test Today E66.9 - Obesity, unspecified, J45.909 - Unspecified asthma, uncomplicated, K21.9 - Gastro-esophageal reflux disease without esophagitis, Z68.36 - Body mass index [BMI] 36.0-36.9, adult Lipid Panel Today E66.9 - Obesity, unspecified, J45.909 - Unspecified asthma, uncomplicated, K21.9 - Gastro-esophageal reflux disease without esophagitis, Z68.36 - Body mass index [BMI] 36.0-36.9, adult Vitamin B12 and Folate Today E66.9 - Obesity, unspecified, J45.909 - Unspecified asthma, uncomplicated, K21.9 - Gastro-esophageal reflux disease without esophagitis, Z68.36 - Body mass index [BMI] 36.0-36.9, adult Vitamin A Today E66.9 - Obesity, unspecified, J45.909 - Unspecified asthma, uncomplicated, K21.9 - Gastro-esophageal reflux disease without esophagitis, Z68.36 - Body mass index [BMI] 36.0-36.9, adult TSH reflex Free T4 Today E66.9 - Obesity, unspecified, J45.909 - Unspecified asthma, uncomplicated, K21.9 - Gastro-esophageal reflux disease without esophagitis, Z68.36 - Body mass index [BMI] 36.0-36.9, adult Ferritin Today E66.9 - Obesity, unspecified, J45.909 - Unspecified asthma, uncomplicated, K21.9 - Gastro-esophageal reflux disease without esophagitis, Z68.36 - Body mass index [BMI] 36.0-36.9, adult Vitamin D 25-OH Total Today E66.9 - Obesity, unspecified, J45.909 - Unspecified asthma, uncomplicated, K21.9 - Gastro-esophageal reflux disease without esophagitis, Z68.36 - Body mass index [BMI] 36.0-36.9, adult FL upper GI w air Today E66.9 - Obesity, unspecified, J45.909 - Unspecified asthma, uncomplicated, K21.9 - Gastro-esophageal reflux disease without esophagitis, Z68.36 - Body mass index [BMI] 36.0-36.9, adult Referrals Behavioral Health Referral E66.9 - Obesity, unspecified, J45.909 - Unspecified asthma, uncomplicated, K21.9 - Gastro-esophageal reflux disease without esophagitis, Z68.36 - Body mass index [BMI] 36.0-36.9, adult Nutrition/Dietitian Referral E66.9 - Obesity, unspecified, J45.909 - Unspecified asthma, uncomplicated, K21.9 - Gastro-esophageal reflux disease without esophagitis, Z68.36 - Body mass index [BMI] 36.0-36.9, adult
[2024-07-31 08:32] VITALS: BMI 36.8
== END 2024-07-31 09:03 | disposition home or self-care (01) ==
LOC: HO.HBS 08:11
PROVIDERS: PCP Internal Medicine; Visit Provider Surgery
DX: E66.812 Obesity, class 2 (principal); E66.09 Other obesity due to excess calories; Z68.36 Body mass index [BMI] 36.0-36.9, adult
CPT/HCPCS: 99204

== ENCOUNTER 2024-08-01 09:07 | Outpatient (REF) | payer OTHER, SELFPAY ==
--- NOTE | ~2024-08-01 | XR_ITS ---
EXAMINATION: XR CHEST CLINICAL INFORMATION: E66.9 - Obesity, unspecified COMPARISON: 10/08/2020. TECHNIQUE: 2 views of the chest were obtained. FINDINGS: The cardiac, hilar, and mediastinal contours are normal. The lungs are clear bilaterally. There is no pneumothorax or pleural effusion. There is no focal osseous or soft tissue abnormality. XR/XR chest 2V IMPRESSION: Normal chest. Electronically signed by: Reyes Hill MD 08/01/2024 10:13 AM EDT
[2024-08-01 09:32] LABS: MANUAL DIFF FLAG NO
--- NOTE | 2024-08-01 09:37 | ECG_ITS ---
Test Reason : e66.9 Blood Pressure : */* mmHG Vent. Rate : 72 BPM Atrial Rate : 72 BPM P-R Int : 122 ms QRS Dur : 80 ms QT Int : 412 ms P-R-T Axes : 69 48 43 degrees QTcB Int : 451 ms Normal sinus rhythm Normal ECG No previous ECGs available Referred By: Ruben Foster Electronically Signed By: TOMMIE WU MD
[2024-08-01 10:48] LABS: Basophils Absolute Auto 0.1 X10*3/uL (0.0-0.2); Basophils Percent Auto 1.3 % (0-2); Eosinophils Absolute Auto 0.2 X10*3/uL (0.0-0.4); Eosinophils Percent Auto 2.3 % (0-4); Hematocrit 36.1 % (37.0-47.0); Hemoglobin 10.7 g/dl (12.0-16.0); Imm Gran Abs Auto 0.09 X10*3/uL (0.00-0.03); Lymphocytes Absolute Auto 1.4 X10*3/uL (1.2-4.9); Lymphocytes Percent Auto 15.4 % (20-40); Mean Corpuscular HGB Conc 29.6 g/dl (31.0-35.0); Mean Corpuscular Volume 74.1 fL (80.0-98.0); Mean Platelet Volume 8.7 fL (9.4-12.3); Monocytes Absolute Auto 0.9 X10*3/uL (0.1-1.2); Monocytes Percent Auto 9.9 % (2-11); Neutrophils Absolute Auto 6.5 x10*3/uL (2.0-8.3); Neutrophils Percent Auto 70.1 % (45-73); Platelet Count 492 X10*3/uL (160-400); Red Blood Count 4.87 X10*6/uL (4.20-5.50); Red Cell Distribution Width 18.6 % (11.0-16.0); White Blood Count 9.3 X10*3/uL (4.8-10.8)
[2024-08-01 10:58] LABS: Estimated Average Glucose 85 mg/dL; Hemoglobin A1C 76.8114 umol/L; Hemoglobin A1c % 4.6 % (<6.0)
[2024-08-01 11:39] LABS: Alanine Aminotransferase 14 U/L (0-31); Albumin Level 4.3 g/dL (3.5-5.0); Alkaline Phosphatase 56 U/L (39-117); Anion Gap 10 (12-20); Aspartate Amino Transferase 24 U/L (5-31); Bilirubin Total 0.2 mg/dL (0.0-1.0); Blood Urea Nitrogen 9 mg/dL (9-16); C Reactive Protein 0.31 mg/dL (< or = 0.50); Calcium 9.6 mg/dL (8.4-10.2); Carbon Dioxide 26 mmol/L (22-29); Chloride 104 mmol/L (96-108); Cholesterol 249 mg/dL (<200); Estimated Glomerular Filt Rate > 60; Glucose Random 78 mg/dL (60-115); HDL Cholesterol 64 mg/dL (>40); Iron 16 mcg/dL (30-160); LDL Cholesterol Calculated 142 mg/dL (<100); Percent Iron Saturation 4 % (15-50); Potassium 4.2 mmol/L (3.3-5.1); Sodium 136 mmol/L (135-145); Total Iron Binding Capacity 388 mcg/dL (228-428); Total Protein 7.4 g/dL (6.5-8.0); Triglycerides 216 mg/dL (<150); Unsaturated Iron Binding 372 ug/dL
[2024-08-01 11:53] LABS: Ferritin 15 ng/mL (10-250); TSH reflex Free T4 1.93 uIU/mL (0.32-4.0)
[2024-08-01 12:07] LABS: Folate 10.2 ng/mL (> or = 4.0); Vitamin B12 372 pg/mL (200-900)
[2024-08-01 18:05] LABS: Insulin 3 uU/mL (2-29)
[2024-08-04 17:38] LABS: Zinc 64 mcg/dL (60-130)
[2024-08-05 13:58] LABS: Vitamin B1 15 nmol/L (8-30)
[2024-08-05 20:27] LABS: Vitamin A 67 mcg/dL (38-98)
== END 2024-08-01 09:08 | disposition home or self-care (01) ==
LOC: HO.XRAY 09:07
PROVIDERS: Visit Provider Surgery
DX: E66.9 Obesity, unspecified (principal); Z68.36 Body mass index [BMI] 36.0-36.9, adult; K21.9 Gastro-esophageal reflux disease without esophagitis; J45.909 Unspecified asthma, uncomplicated
CPT/HCPCS: 36415; 71046; 80053; 80061; 82306; 82607; 82728; 82746; 83036; 83525; 83540; 84425; 84443; 84590; 84630; 85025; 86140; 93005

== ENCOUNTER → 2024-08-01 09:37 | Outpatient (BNV) | payer OTHER, SELFPAY | PROVIDERS: Visit Provider Internal Medicine Cardiovascular Disease | DX: E66.9 Obesity, unspecified (principal) | CPT/HCPCS: 93010 ==

== ENCOUNTER → 2024-08-01 09:51 | Outpatient (BNV) | payer OTHER, SELFPAY | PROVIDERS: Visit Provider Radiology Diagnostic Radiology | DX: E66.9 Obesity, unspecified (principal) | CPT/HCPCS: 71046 ==

== ENCOUNTER 2024-08-15 11:09 | Day surgery (SDC) | payer OTHER, SELFPAY ==
--- NOTE | 2024-08-13 15:28 | HO.ANESPROP2 ---
Documented by User: Angela Rao NP 08/13/24 15:28 HPI - Anesthesia Eval Consult details Narrative: 48yo F for Upper Endoscopy PMFSH Active Problems Active Problems: All Active Problems Vitamin B12 deficiency (Acute) Vitamin D deficiency (Acute) Asthma (Acute) GERD (gastroesophageal reflux disease) (Acute) ADHD (Acute) BMI 36.0-36.9,adult (Acute) Obesity (Acute) Cough (Acute) Past Medical History Medical History delivery delivered Asthma GERD (gastroesophageal reflux disease) ADHD Obesity Delivery with history of Family History Family History Mother No problems noted. Father No problems noted. Daughter Bipolar 1 disorder Obesity Daughter Obesity Son No problems noted. Son No problems noted. Surgical History Surgical History H/O endoscopy History of back surgery Social History Social History Alcohol intake: never Patient Tobacco Use Status: Current everyday Tobacco user Tobacco use type: Cigarette Cigarettes Per Day: 5 Use of substances other than those prescribed or required for medical reasons: No Are you DNR?: No Advance Directives: No Advance Directives Information Provided: Yes Patient : No : No Poor oral hygiene: No Meds Allergies Allergy/AdvReac Type Severity Reaction Status Date / Time No Known Allergies Allergy Verified 07/31/24 08:24 Home Medications ?Medication ?Instructions ?Recorded ?Confirmed ?Last Taken ?Type dextroamphetamine-amphetamine ER 1 cap PO QAM 07/19/24 07/31/24 Unknown History 20 mg 24hr capsule,extend release (Adderall XR) Assessment and Plan Assessment Anesthesia Assessment: Chart Reviewed Documented by User: Beverley Oliveira MD 08/15/24 11:55 PMFSH Past Medical History Medical History delivery delivered Asthma GERD (gastroesophageal reflux disease) ADHD Obesity Delivery with history of Family History Family History Mother No problems noted. Father No problems noted. Daughter Bipolar 1 disorder Obesity Daughter Obesity Son No problems noted. Son No problems noted. Surgical History Surgical History H/O endoscopy History of back surgery History of Problems with Anesthesia: No Social History Social History Alcohol intake: never Patient Tobacco Use Status: Current everyday Tobacco user Tobacco use type: Cigarette Cigarettes Per Day: 5 Use of substances other than those prescribed or required for medical reasons: No Are you DNR?: No Advance Directives: No Advance Directives Information Provided: Yes Patient : No : No Poor oral hygiene: No Meds Allergies Allergy/AdvReac Type Severity Reaction Status Date / Time No Known Allergies Allergy Verified 07/31/24 08:24 Home Medications ?Medication ?Instructions ?Recorded ?Confirmed ?Last Taken ?Type dextroamphetamine-amphetamine ER 1 cap PO QAM 07/19/24 07/31/24 Unknown History 20 mg 24hr capsule,extend release (Adderall XR) Exam Airway Mallampati Class: II TM Dist: >3cm Neck ROM: Full Loose/Missing/Broken Teeth: No Heart: RRR Lungs: CTA Assessment and Plan Assessment Anesthesia Assessment: Anesthesia Plan Discussed Final Anesthetic Review History of Problems with Anesthesia: No NPO: Yes ASA Class: II Final Preanesthetic Review: Meds/Allgs Chart Reviewed, Consent Obtained/Reviewed and Anes Risks/Benef Reviewed Patient Risk: Low Procedure Risk: Intermediate Anesthetic Plan Anesthetic Plan: MAC: Disposition: Standard PACU
--- OUTSIDE RECORDS SUMMARY | 2024-08-13 16:37 | XMS_ITS | Encounter Summary ---
Author Organization [employer] [facility] Address [address] [place] [address] Care Team Providers Care Linotype Machinist Apprentice Name Role Phone Mary Galvan MD Primary Care Provider [phone] Encounter Details Date Type Department Care Team Description 03/22/2017 Release of Information Medical Records [address] [place] [id number] Abstract, Provider Social History Tobacco Use Types Packs/Day Years Used Date Smoking Tobacco: Every Day Cigarettes 1 Smokeless Tobacco: Never Alcohol Use Standard Drinks/Week Comments No 0 (1 standard drink = 0.6 oz pur e alcohol) Sex Assigned at Date Recorded Not on file Job Start Date Occupation Industry Not on file Not on file Not on file documented as of this encounter Plan of Treatment Not on file documented as of this encounter Visit Diagnoses Not on filedocumented in this encounter Care Teams Linotype Machinist Apprentice Relationship Specialty Start Date End Date Mary Galvan MD [address] [place] [id number] PCP - General Internal Medicine 09/18/14 documented as of this encounter
[2024-08-15] VITALS (9 sets, daily range): BP systolic 111–155; BP diastolic 62–84; PULSE 72–81; RESP 12–16; TEMP 36.1–37.1; O2SAT 98; BMI 36.8
[2024-08-15 11:32] LABS: UPreg QC Valid YES; Urine Pregnancy NEGATIVE (NEGATIVE)
[2024-08-15] MEDS: Lactated Ringers 1,000 ML 80 ML IVCONT (11:49)
--- NOTE | 2024-08-15 12:07 | MHC.SHP ---
Pre-Procedural Eval Section A - 24 Hr Update-Section A only Date of Service: 08/15/24 The patient is an INPATIENT: No The patient has been examined within 24 hours of the surgical procedure. The History & Physical has been completed within 30 days and I have reviewed it.: Yes Section B - Complete if H&P > 30 days Chief Complaint: Morbid (severe) obesity due to excess calories Details of Present Illness: Anemia Relevant Family History (Specify if Yes): No Relevant Social History: None Present Medications: None Medical History: No relevant PMH History of Previous Operations: No relevant previous surgery Allergies: Allergies Allergy/AdvReac Type Severity Reaction Status Date / Time No Known Allergies Allergy Verified 07/31/24 08:24 Review of Systems Sugical H&P ROS: Negative: Constitution, Cardiovascular, Respiratory, Neurological, Psychiatric, Hem-Onc, Allergic/Immunologic, Gastrointestinal, Genitourinary, Musculoskeletal, Integumentary, Endocrine and Eyes/Ears/Nose/Throat Exam Surgical H&P Exam: Normal: HEENT, Normal: Heart, Normal: Lungs, Normal: Extremities, Normal: Abdomen, Normal: Skin and Normal: Neurological Plan Diagnosis/Plan: Unchanged (EGD to assess etiology of anemia. Risks of bleeding and perforation were discussed with the patient and she is in agreement with the plan.) I have reviewed the history and physical and performed a pertinent physical examination on my patient. No changes have occurred unless specified. Time Spent With Patient Time: Total time managing care of this patient today ____ minutes.
--- NOTE | 2024-08-15 12:10 | PM.OP ---
Brief Operative Note Date of Service: 08/15/24 Pre-op diagnosis: Anemia Post-op diagnosis: same Procedure: PROCEDURE DATE: 08/15/2024 PREOPERATIVE DIAGNOSIS: Anemia POSTOPERATIVE DIAGNOSIS: ?Same as above. 1) Large diaphragmatic hernia PROCEDURE: Uyrwxaqq-gsuuom-iqgfmzhoaadc with biopsies Surgeon: ?Min Foster M.D.. Ph.D. Attorney General: None ? Anesthesia: IV sedation Estimated blood loss: ?Minimal FINDINGS AND PROCEDURE: ? OPERATIVE INDICATIONS: ?The patient is a 48 year old female known to me who is interested in bariatric surgery. The patient has significant anemia. Based on this information I recommended an upper endoscopy to evaluate the patient's symptoms. Risks and complications of the surgery were discussed with the patient in advance particularly the possibility of perforation or bleeding that may require surgical intervention. The patient understood the risks and was in agreement with the plan. ? PROCEDURE: After informed consent was obtained by the patient, the patient was ?transferred to the Operating Room and was placed in the supine position.? After successful induction of IV sedation, a mouth block was inserted and the patient was placed in the left lateral decubitus position. An upper endoscopy was performed next, the oropharynx and esophagus appeared within the normal limits. There was a large 4-5cm fixed, sliding hiatal hernia. The z-line was smooth. Two biopsies were obtained from the distal esophagus 2-3 cm proximal to the GE junction and two additional biopsies from the GE junction. The stomach was entered and it appeared to be of normal size. There was no gastritis. There was no stricture or ulcer. A biopsy was obtained from the gastric fundus and the antrum. No significant bleeding was noted from any of the biopsy sites. Retroflexion of the scope confirmed the presence of a large diaphragmatic hernia. The scope was then advanced into the duodenum which appeared to be normal as well. At that point the duodenum ?and the stomach were decompressed and the scope was withdrawn from the patient's mouth. The patient extubated and was transferred in stable condition to the Recovery Room for further care. I was present and performed all steps of the procedure. There were no residents to assist with this case. Min Foster M.D., Ph.D. Surgeon: Ruben Foster MD Anesthesia: MAC Was an Attorney General used for this Procedure?: No Estimated blood loss (mL): 0 IV fluids (mL): 400 Urine output (mL): 0 (No [place] to record output) Pathology: other (1) antrum x1, 2) fundus x1, 3) GE junction x2, 4) distal esophagus x2) Condition: stable Disposition: PACU
[2024-08-15] MEDS: Iron Sucrose Complex 400 MG in 0.9 % Sodium Chloride 250 ML 108 MG IV (13:29)
== END 2024-08-15 16:01 | disposition home or self-care (01) ==
PROVIDERS: Nurse Practitioner; Visit Provider Surgery
PROC: 0DJ08ZZ Inspection of Upper Intestinal Tract, Via Natural or Artificial Opening Endoscopic (ICD-10-PCS; CPT 43235; principal; 2024-08-15 14:10)
DX: D64.9 Anemia, unspecified (principal); E66.01 Morbid (severe) obesity due to excess calories; Z68.36 Body mass index [BMI] 36.0-36.9, adult; K44.9 Diaphragmatic hernia without obstruction or gangrene; K21.9 Gastro-esophageal reflux disease without esophagitis; J45.909 Unspecified asthma, uncomplicated; F90.9 Attention-deficit hyperactivity disorder, unspecified type; Z79.899 Other long term (current) drug therapy; Z98.890 Other specified postprocedural states; F17.210 Nicotine dependence, cigarettes, uncomplicated; E66.09 Other obesity due to excess calories
CPT/HCPCS: 43239; 81025; 88305; 88313; 88342; J1756; J2003; J2704

== ENCOUNTER → 2024-08-15 11:09 | Outpatient (BNV) | payer OTHER, SELFPAY | PROVIDERS: Visit Provider Surgery | DX: K44.0 Diaphragmatic hernia with obstruction, without gangrene (principal); D64.9 Anemia, unspecified | CPT/HCPCS: 43239 ==

== ENCOUNTER 2024-08-16 10:09 | Outpatient (AMB) | payer OTHER, SELFPAY ==
--- NOTE | 2024-08-16 10:05 | A.OFFWM_ITS ---
Intake Intake Visit Reasons: VIDEO Intake Allergies No Known Allergies Allergy (Verified 07/31/24 08:24) FORMERLY [facility], [facility] Medical History delivery delivered Asthma GERD (gastroesophageal reflux disease) ADHD Obesity Delivery with history of Surgical History H/O endoscopy History of back surgery Family History Mother No problems noted. Father No problems noted. Daughter Bipolar 1 disorder Obesity Daughter Obesity Son No problems noted. Son No problems noted. Social History Alcohol intake: never Patient Tobacco Use Status: Current everyday Tobacco user Tobacco use type: Cigarette Cigarettes Per Day: 5 Behavioral Health Assessment Weight Management Therapy Therapy Notes Details The patient is a 48-year-old female presenting for an initial behavioral health () assessment as part of the preoperative process for the surgical weight loss program. The patient reports she was initially referred to the program by her insurance carrier after discussing her concerns with her primary care provider (PCP). Her PCP recommended a structured weight management program, as she experienced a weight gain of approximately 40 lbs within the past year, despite no significant changes in her eating habits during that time. The patient also reports ongoing sleep disturbances, which she attributes to a history of working night shifts for several years and high caffeine intake. She believes these factors have contributed to her weight gain. She is currently engaged in behavioral health treatment through [facility]. She previously attended weekly therapy for about four months and is now followed every 2?3 months by a prescriber for medication management. She reports being prescribed Fluoxetine and Adderall. The patient disclosed a history of a mental breakdown several years ago related to stress but noted that she has never been hospitalized or experienced a psychiatric crisis. She denies any current or past safety concerns, including thoughts of self-harm or harm to others. Presenting Concerns Referral Source P-Provider. Reason for referral Completion of behavioral health assessment as part of process for weight-loss surgery. Precipitating Event Obesity. Living Situation Current Living Situation Rent At risk of losing current housing? No Satisfied with current living situation? Yes Comments Pt lives with her and her 15 y/o daughter. Social History Family history and relationship PT is 27 years ago, they have 3 children together, and she also has 2 oldest from a different relationship. she had her first daughter at age 17. Her mom when she was young (age 10), father is alive but they're not close. Raised by her maternal grandmother and maternal uncle, they are . PT reports she is very close to her children and . 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 Help with grandkids occasionally. Developmental history and status She had learning challenges while in school and later in Adulthood was diagnosed with ADHD. Social support , children. Community support Therapist and prescriber. Jainism/Spirituality Raised as Synagogue but doesn't practice. Cultural/Ethnic information Welsh/. Legal Involvement and History Current or historical involvement with the legal system? None reported. Education Highest grade completed 11th grade - GED Preferred learning style Learn by doing and Visual Currently enrolled in educational program? No Interested in further educational program? No Educational Interests/Skills Used to work in a [employer], but left work due to anxiety. Has worked in factories in the past. She would like to return to work but is not sure about what she would like to do. Employment Employment Status Unemployed (For the past year. ) Wants help to find employment? No Meaningful activities Clean, play with her dog. Reading, painting, decorating, arts/crafts (frames, candles) Financial Situation Describe current financial situation Comfortable Financial assistance? Food Loraine Service Service? No Mental Health and Addiction Treatment Current/Past substance abuse? Yes Comments Used Cocaine as a teen. Alcohol: None Cigarettes/Tobacco: 4-5 at day. Cannabis/Edibles: None Caffeine: 4-5 cups at day Current/Past addictive behavior concerns? No Psychiatric history PT currently attend treatment at [facility]. [phone] She had a therapist (Meek) for 4 months, and currently sees her prescriber (Sydnie) every 2-3 months. She is receiving Tx for ADHD and getting prescribed Adderall XR 20mg, 1 at day and 10mg in the afternoon. 7-8 years ago she had a mental breakdown , PT reports this happened [place] was [place] and was dealing with transitions for her kids to adulthood and was dealing with a lot of stress at the time. Denies hospitalization at that time. PT reports no Hx of safety concerns such as SI/SA, self-harm or other-harm. Medical and Physical Health Summary Additional Medical History not covered in history None additional Sexual History concerns none reported. Physical exam in the last year? Yes Pain Screening0 Current pain? Yes Pain in the last few months? Yes Comments hip/legs/knee pain. Medications Is the patient compliant with medications? Yes Does the patient have [place] Guardian in place? Not applicable Does the patient use complimentary health approaches? No Questionnaires PHQ-9 Over the last 2 weeks, how often have you been bothered by any of the following problems? 1. Little interest or pleasure in doing things: several days 2. Feeling down, depressed, or hopeless: several days 3. Trouble falling or staying asleep, or sleeping too much: more than half the days 4. Feeling tired or having little energy: nearly every day 5. Poor appetite or overeating: more than half the days 6. Feeling bad about yourself - or that you are a failure or have let yourself or your family down: more than half the days 7. Trouble concentrating on things, such as reading the newspaper or watching television: more than half the days 8. Moving or speaking so slowly that other people could have noticed. Or the opposite - being so fidgety or restless that you have been moving around a lot more than usual: more than half the days 9. Thoughts that you would be better off or of hurting yourself in some way: not at all Total score: 15 Depression Screening Interpretation: Positive (From new PT pack done on 07/19/24) Depression Screening Follow-up: In treatment Depression Screening Done: Yes Source: Developed by Drs. Deandre Stevens, Danyelle Higuera, Prashant Murphy and colleagues, with an educational cedric from [employer]. Binge Eating Scale Group 1 A. I don't feel self-conscious about my wt. or body size when I'm with others. B. I feel concerned about how I look to others, but it normally does not make me fell disappointed with myself C. I do get self-conscious about my appearance and wt. which makes me feel disappointed in myself. D. I feel very self-conscious about my wt. and frequently I feel intense shame and disgust for myself. I try to avoid social contacts because of my self- consciousness. Response Group 1: C Group 2 A. I don't have any difficulty eating slowly in the proper manner. B. Although I seem to gobble down foods, I don't end up feeling stuffed because of eating to much. C. At times, I tend to eat quickly and then, I feel uncomfortably full afterwards. D. I have the habit of bolting down my food, without really chewing it. When this happens I usually feel uncomfortably stuffed because I've eaten to much. Response Group 2: A Group 3 A. I feel capable to control my eating urges when I want to. B. I feel like I have failed to control my eating more than the average person. C. I feel utterly helpless when it comes to feeling in control of my eating urges. D. Because I feel so helpless about controlling my eating I have become very desperate about trying to get control. Response Group 3: A Group 4 A. I don't have the habit of eating when I'm bored. B. I sometimes eat when I'm bored, but often I'm able to get busy and get my mind off food. C. I have a regular habit of eating when I'm bored, but occasionally, I can use some other activity to get my mind off eating. D. I have a strong habit of eating when I'm bored. Nothing seems to help me breath the habit. Response Group 4: B Group 5 A. I'm usually physically hungry when I eat something. B. Occasionally, I eat something on impulse even though I really am not hungry. C. I have the regular habit of eating foods, that I might not really enjoy, to satisfy a hungry feeling even though physically, I don't need the food. D. Although I'm not physically hungry, I get a hungry feeling in my mouth that only seems to be satisfied when I eat a food, like sandwich, that fills my mouth. Sometimes, when I eat the food to satisfy my mouth hunger, I then spit the food out so I won't gain weight. Response Group 5: A Group 6 A. I don't feel any guilt or self-hate after I overeat. B. After I overeat, occasionally I feel guilt or self-hate. C. Almost all the time I experience strong guilt or self-hate after I overeat. Response Group 6: B Group 7 A. I don't lose total control of my eating when dieting even after periods when I overeat. B. Sometimes when I eat a forbidden food on a diet, I feel like I blew it and eat even more. C. Frequently, I have the habit of saying to myself, I've blown it now, why not go all the way, when I overeat on a diet. When that happens I eat more. D. I have a regular habit of starting a strict diets for myself but I break the diets by going on an eating binge. My life seems to be either a feast or famine. Response Group 7: A Group 8 A. I rarely eat so much food that I feel uncomfortably stuffed afterwards. B. Usually about once a month, I each such a quantity of food, I end up feeling very stuffed. C. I have regular periods during the month when I eat large amounts of food, either at mealtime or at snacks. D. I eat so much food that I regularly feel quite uncomfortable after eating and sometimes a bit nauseous. Response Group 8: A Group 9 A. My level of calorie intake does not go up very high or go down very low on a regular basis. B. Sometimes after I overeat, I will try to reduce my caloric intake to almost nothing to compensate for the excess calories I've eaten. C. I have a regular habit of overeating during the night. It seems that my routine is not to be hungry in the morning but overeat in the evening. D. In my adult years, I have had week-long periods where I practically starve myself. This follows periods when I overeat. It seems I live a life of either feast or famine. Response Group 9: A Group 10 A. I usually am able to stop eating when I want to. I know when enough is enough. B. Every so often, I experience a compulsion to eat which I can't seem to control. C. Frequently, I experience strong urges to eat which I seem unable to control, but at other times I can control my eating urges. D. I feel incapable of controlling urges to eat. I have a fear of not being able to stop eating voluntarily. Response Group 10: B Group 11 A. I don't have any problem stopping eating when I feel full. B. I usually can stop eating when I feel full but occasionally overeat leaving me feeling uncomfortably stuffed. C. I have a problem stopping eating once I start and usually I feel uncomfortably stuffed after I eat a meal. D. Because I have a problem not being able to stop eating when I want, I carla etimes have to induce vomiting to relieve my stuffed feeling. Response Group 11: A Group 12 A. I seem to eat just as much when I'm with others, Family social gatherings as when I'm by myself. B. Sometimes, when I'm with other persons, I don't eat as much as I want to eat because I'm self-conscious about my eating. C. Frequently, I eat only a small amount of food when others are present, because I'm very embarrassed about my eating. D. I feel so ashamed about overeating that I pick times to overeat when I know no one will see me. I feel like a closet eater. Response Group 12: B Group 13 A. I eat three meals a day with only an occasional between meal snack. B. I eat 3 meals a day, but I also normally snack between meals. C. When I am snacking heavily, I get in the habit of skipping regular meals. D. There are regular periods when I seem to be continually eating, with no planned meals. Response Group 13: D Group 14 A. I don't think much about trying to control unwanted eating urges. B. At least some of the time, I feel my thoughts are pre-occupied with trying to control my eating urges. C. I feel that frequently I spend much time thinking about how much I ate or about trying not to eat anymore. D. It seems to me that most of my waking hours are pre-occupied by thoughts about eating or not eating. I feel like I'm constantly struggling not to eat. Response Group 14: A Group 15 A. I don't think about food a great deal. B. I have strong craving for food but they last only for brief periods of time. C. I have days when I can't seem to think about anything else but food. D. Most of my days seem to be pre-occupied with thoughts about food. I feel like I live to eat. Response Group 15: A Group 16 A. I usually know whether or not I'm physically hungry. I take the right portion of food to satisfy me. B. Occasionally, I feel uncertain about knowing whether or not I'm physically hungry. A these times it's hard to know how much food I should take to satisfy me. C. Even though I might know how many calories I should eat, I don't have any idea what is a normal amount of food for me. Response Group 16: B Binge Eating Score: 10 Score less than 17 Minimal Risk Score between 18-26 Moderate Risk Score between 27-46 High Risk Assessment & Plan Assessment & Plan (1) Trauma and stressor-related disorder: Code(s): F43.9 - Reaction to severe stress, unspecified (2) Adult ADHD (attention deficit hyperactivity disorder): Code(s): F90.9 - Attention-deficit hyperactivity disorder, unspecified type (3) Pre-bariatric surgery psychological evaluation: Code(s): Z71.89 - Other specified counseling Plan The patient is not yet cleared, as the behavioral health assessment was not completed during today?s visit. She is scheduled to return in three weeks to continue the evaluation process. Next nesha: 09/04/24 at 10am, Video. Telehealth Telehealth Telehealth Platform: [facility] Location of provider rendering services: other Location of patient: address on file Patient Identification confirmed using: Name, : Yes Telehealth method: voice only Patient verbally consented to treatment: Yes Patient verbally consented to billing insurance company: Yes Patient informed of any privacy concerns related to visit: Yes Minutes spent on Phone/Video with Pt.: 55 Coding Level of Care Code New Pt Tele Psy Diag Eval (12564) Patient Type New Diagnoses Trauma and stressor-related disorder F43.9 Adult ADHD (attention deficit hyperactivity disorder) F90.9 Pre-bariatric surgery psychological evaluation Z71.89 Time Spent (min) 55
--- OUTSIDE RECORDS SUMMARY | 2024-08-16 11:40 | XMS_ITS | Encounter Summary ---
Author Organization [employer] [facility] Address [address] [place] [address] Care Team Providers Care Electronic System Engineer Name Role Phone Mary Galvan MD Primary Care Provider [phone] Encounter Details Date Type Department Care Team Description 03/22/2017 Release of Information Medical Records [address] [place] [id number] Abstract, Provider Social History Tobacco Use Types [...] on filedocumented in this encounter Care Teams Electronic System Engineer Relationship Specialty Start Date End Date Mary Galvan MD [address] [place] [id number] PCP - General Internal Medicine 09/18/14 documented as of this encounter
== END 2024-08-16 11:09 | disposition home or self-care (01) ==
PROVIDERS: Visit Provider Counselor Mental Health
DX: F43.9 Reaction to severe stress, unspecified (principal); F90.9 Attention-deficit hyperactivity disorder, unspecified type; Z71.89 Other specified counseling
CPT/HCPCS: 90791